=== PATIENT | male | born 1965 | race Caucasian/White ===

== ENCOUNTER 2018-09-17 09:11 | Emergency (ER) | payer BC ==
[~2018-09-17] VITALS: Wt 90.5 kg
[2018-09-17] MEDS ORDERED: LIDOCAINE/MYLANTA 40 ML BTL PO STA (09:46)
[2018-09-17] MEDS ORDERED: BELLADONNA/PHENOBARBITAL TAB PO STA (09:46)
[2018-09-17] MEDS ORDERED: ASPIRIN 325 MG TAB PO STA (09:46)
[2018-09-17] MEDS ORDERED: SOD CHLORIDE 0.9% 500 ML IV STA (09:46)
--- NOTE | 2018-09-17 09:52 | ERD ---
ER Documentation Chief Complaint Chief Complaint cp described as "heartburn", coughing for 3 wks HPI This is a very pleasant 53-year-old male with no past medical history. The patient indicates for the past 3 weeks he has had a productive cough. He indicates that the cough has improved and over the past several days has only been a dry cough. He said no fevers or shaking or chills. He had a recent hospitalization. He said no sick contacts. He has no shortness of breath at rest or exertion. He does indicate that he has been experiencing heartburn which she describes as a retrosternal burning-like pain. He denies any chest pressure that radiates to the neck arm back or jaw. He indicates that this morning at 3 AM roughly 7 hours prior to arrival the heartburn progressively worsened while he was lying supine. It awoke him from his sleep. He stated he was able to go back to sleep comfortably but when he awoke several hours later he was still experiencing heartburn sensation. Therefore he came to the emergency department to be further evaluated. He does not smoke tobacco. He has no family history of coronary artery disease in first-degree relatives. He states there is no chest pressure that radiates to the neck arm back or jaw and no associated symptoms of nausea vomiting or diaphoresis. No recent travel. No prolonged immobilization. No shortness of breath at rest or exertion. No calf tenderness or swelling. ROS All systems reviewed and are negative except as per history of present illness. PMhx/Soc Medical and Surgical Hx: pt denies Medical Hx, pt denies Surgical Hx Hx Alcohol Use: Yes Hx Substance Use: No Hx Tobacco Use: No Smoking Status: Never smoker Physical Exam Vitals Vital Signs Date Temp Pulse Resp B/P (MAP) Pulse Ox O2 O2 Flow FiO2 Time Delivery Rate 09/17/18 97.7 91 20 156/97 99 09:13 (116) Physical Exam Constitutional:Well-developed. Well-nourished. HEENT:Normocephalic. Atraumatic.Pupils were equal round reactive to light. Moist mucous membranes.No tonsillar exudates. Neck: No nuchal rigidity. No lymphadenopathy. No posterior cervical spine tenderness or step-offs. Respiratory: Not using accessory muscles of respiration.Lungs were clear to auscultation bilaterally. No rhonchi. No rales. No wheezing. Cardiovascular: Regular rate regular rhythm.No murmurs. No rubs were appreciated.S1, S2 normal. Distal pulses are palpable 2+ bilaterally. GI: Abdomen was soft. Nontender. Non Distended. No pulsatile abdominal masses or bruits. No rebound. No guarding. Bowel sounds were present and normal. Muscle skeletal: Full range of motion of both the upper and lower extremities bilaterally.Normal muscle tone.No assymetrical calf tenderness or swelling. Skin: No petechia, no purpura. No lesions on the palms or the soles of the feet. No maculopapular rash. NEURO: Patient was alert, awake, orientated x3.No facial droop. Gait observed and normal with no ataxia.Speech had regular rate and rhythm. No focal neurological deficits. Results 24 hrs Current Medications Medications Dose Sig/Augustina Start Time Status Last (Trade) Ordered Route PRN Stop Time Admin Dose Reason Admin Sodium 500 ml @ Q1H STAT 09/17/18 Chloride 500 mls/hr IV 09:46 09/17/18 10:45 Aspirin 325 mg ONCE STAT 09/17/18 DC (Aspirin) PO 09:46 09/17/18 09:48 40 ml ONCE STAT 09/17/18 DC Miscellaneous PO 09:46 Medication 09/17/18 09:48 (Gi Cocktail (2)) Belladonna/ 2 tab ONCE STAT 09/17/18 DC Phenobarbital PO 09:46 () 09/17/18 09:48 Procedures/MDM The patient presented to the emergency department complaining of chest pain. My clinical evaluation and workup was to distinguish minor causes of chest pain from acute life threatening cardiopulmonary causes such as myocardial infarction, pulmonary embolism, aortic dissection, esophageal rupture, cardiac tamponade, The patient was placed on a manager monitoring, continuous pulse oximetry and IV access established by nursing staff. 12 Lead EKG tracing ordered and reviewed by myself showed: Normal sinus rhythm of 95 bpm and no arrhythmia. VT interval normal. QRS duration normal. No ST segment elevation No ST segment depression. No changes consistent with acute ischemia. The patients chest pain was reproduced by palpation and horizontal flexion of the arms. It was my clinical impression that the pain was a result of inflammation of the skin and subcutaneous structures of the chest wall versus myocardial ischemia. I felt the patient had low-risk chest pain and could therefore be safely discharged with close follow-up. Departure Diagnosis: Primary Impression: Pleurisy Condition: Fair TABATHA RAMIREZ MD Sep 17, 2018 09:52
[2018-09-17] MEDS ORDERED: OMEP20CA16 PO (11:26)
[2018-09-17] MEDS ORDERED: IBUP800T48 PO (11:26)
[2018-09-17 12:30] VITALS: BP 147/79; PULSE 87; RESP 17
== END 2018-09-17 12:31 | disposition home or self-care (01) ==
LOC: E/R 09:11
DX: R09.1 Pleurisy (principal); R07.9 Chest pain, unspecified
CPT/HCPCS: 71045; 80053; 82550; 82553; 83690; 83880; 84484; 85025; 85378; 85610; 85730; 99285; J7040; 93005